=== PATIENT | female | born 1985 | race Native Hawaiian/Other Pacific Islander ===

== ENCOUNTER 2016-06-17 14:59 | Outpatient (CLI) | payer OTHER | END 2016-06-17 15:06 | disposition short-term general hospital (02) | LOC: AMB 14:59 | DX: R51 Headache (principal); J34.89 Other specified disorders of nose and nasal sinuses; S00.81XA Abrasion of other part of head, initial encounter; V57.0XXA Driver of pick-up truck or van injured in collision with fixed or stationary object in nontraffic accident, initial encounter; Y92.414 Local residential or business street as the place of occurrence of the external cause | CPT/HCPCS: A0425; A0427 ==

== ENCOUNTER 2016-06-17 15:12 | Emergency (ER) | payer OTHER ==
[~2016-06-17] VITALS: Ht 167.6 cm; Wt 68.0 kg
[2016-06-17 15:30] VITALS: TEMP 98.8
[2016-06-17 17:10] VITALS: BP 147/89
== END 2016-06-17 17:19 | disposition home or self-care (01) ==
LOC: ED 15:12
DX: S00.83XA Contusion of other part of head, initial encounter (principal); S80.12XA Contusion of left lower leg, initial encounter; V47.0XXA Car driver injured in collision with fixed or stationary object in nontraffic accident, initial encounter
CPT/HCPCS: 96374; 99283; J1885

== ENCOUNTER 2017-08-11 21:24 | Outpatient (CLI) | payer OTHER | END 2017-08-11 21:26 | disposition short-term general hospital (02) | LOC: AMB 21:24 | DX: R51 Headache (principal); V49.88XA Car occupant (driver) (passenger) injured in other specified transport accidents, initial encounter; Y92.488 Other paved roadways as the place of occurrence of the external cause; Y99.8 Other external cause status | CPT/HCPCS: A0425; A0429 ==

== ENCOUNTER 2017-08-11 21:46 | Emergency (ER) | payer OTHER ==
[~2017-08-11] VITALS: Ht 167.6 cm; Wt 72.6 kg
[2017-08-11 22:08] VITALS: BP 124/84; TEMP 99.3
== END 2017-08-11 23:20 | disposition home or self-care (01) ==
LOC: ED 21:46
DX: S16.1XXA Strain of muscle, fascia and tendon at neck level, initial encounter (principal); S10.93XA Contusion of unspecified part of neck, initial encounter; V43.52XA Car driver injured in collision with other type car in traffic accident, initial encounter
CPT/HCPCS: 96372; 99282; J1885

== ENCOUNTER 2017-09-09 21:22 | Inpatient (IN) | payer OTHER ==
[~2017-09-09] VITALS: Ht 167.6 cm; Wt 72.6 kg
[2017-09-09 21:28] VITALS: BP 137/83; TEMP 98.8
[2017-09-09 22:01] LABS: PLATELET COUNT 336 K/uL (152-353)
[2017-09-09 22:09] LABS: POTASSIUM 3.3 mmol/L (3.6-5.2)
--- NOTE | 2017-09-10 01:15 | NUR ---
SANDA[employer]IN DRIP STARTED AT THIS TIME RUNNING AT 25MCG/HOUR.
[2017-09-10 02:10] VITALS: BP 126/78; TEMP 98.8; Ht 167.6 cm; Wt 72.6 kg
[2017-09-10 04:00] VITALS: BP 108/62; TEMP 100.6
[2017-09-10 06:36] LABS: PLATELET COUNT 254 K/uL (152-353)
[2017-09-10 06:40] LABS: POTASSIUM 3.8 mmol/L (3.6-5.2)
[2017-09-10 08:00] VITALS: BP 100/55; TEMP 98.2
[2017-09-10 12:00] VITALS: BP 99/54; TEMP 98.3
[2017-09-10 16:00] VITALS: BP 98/57; TEMP 98.2
[2017-09-10 20:00] VITALS: BP 114/59; TEMP 98.5
[2017-09-11] VITALS (14 sets, daily range): BP systolic 96–160; BP diastolic 56–78; TEMP 97.8–100.8
[2017-09-11 06:31] LABS: PLATELET COUNT 115 K/uL (152-353)
[2017-09-11 06:43] LABS: POTASSIUM 3.1 mmol/L (3.6-5.2)
[2017-09-12] VITALS: BP 129/77; TEMP 99.2
[2017-09-12 04:00] VITALS: BP 118/74; TEMP 99.1
[2017-09-12 05:33] LABS: PLATELET COUNT 204 K/uL (152-353)
[2017-09-12 05:49] LABS: POTASSIUM 3.5 mmol/L (3.6-5.2)
[2017-09-12 08:00] VITALS: BP 141/72; TEMP 98
[2017-09-12 12:00] VITALS: BP 130/84; TEMP 98
== END 2017-09-12 14:55 | disposition home or self-care (01) | DRG 379 ==
LOC: ED 21:22 → MED/SURG 09-10 00:03
PROVIDERS: Family Medicine
PROC: 0DJ08ZZ Inspection of Upper Intestinal Tract, Via Natural or Artificial Opening Endoscopic (ICD-10-PCS; principal; 2017-09-11)
DX: K92.2 Gastrointestinal hemorrhage, unspecified (principal); D64.89 Other specified anemias; E87.6 Hypokalemia; D72.828 Other elevated white blood cell count; R11.2 Nausea with vomiting, unspecified; K29.60 Other gastritis without bleeding; K25.9 Gastric ulcer, unspecified as acute or chronic, without hemorrhage or perforation; K44.9 Diaphragmatic hernia without obstruction or gangrene; K22.6 Gastro-esophageal laceration-hemorrhage syndrome; R10.32 Left lower quadrant pain; M54.2 Cervicalgia; R51 Headache
CPT/HCPCS: 36415; 80048; 80053; 82271; 82728; 83540; 83550; 83735; 83986; 84100; 85027; 86318; 93005; 96361; 96365; 96375; 96376; 99284; J0744; J1170; J1885; J2354; J2405; J2550; J2704; J3475; J3490; Q9963

== ENCOUNTER 2018-04-04 12:28 | Emergency (ER) | payer OTHER ==
[~2018-04-04] VITALS: Ht 167.6 cm; Wt 74.8 kg
[2018-04-04 12:30] VITALS: TEMP 98
[2018-04-04] MEDS ORDERED: WELLBUTRIN100 M1 PO (12:52)
[2018-04-04 13:30] VITALS: BP 144/92
== END 2018-04-04 13:30 | disposition home or self-care (01) ==
LOC: ED 12:28 → EDSTATUS 12:43 → ED 13:30
DX: K08.89 Other specified disorders of teeth and supporting structures (principal)
CPT/HCPCS: 96372; 99283; J1885; J2550